=== PATIENT | male | born 1950 | race Caucasian/White ===

== ENCOUNTER 2020-12-11 05:13 | Observation (INO) ==
--- NOTE | 2020-12-03 12:50 | Anesthesiology Consultation ---
Date of Service December 03, 2020 Assessment & Plan (1) Encounter for pre-operative examination: Patient was originally scheduled for this TKA to be done 10/06/20, and was seen in PAT by Windy Ambrosio PA-C on 09/21/20. Case R/S twice due to COVID surge. COVID Status: As of 12/03 nurse assessment, patient denies travel to endemic area, known exposure/sick contacts, or symptoms of COVID19. Preoperative COVID19 testing to be updated prior to surgery (was negative on 10/27, surgery subsequently R/S). PCP Clearance 10/05/20: "considered to be medically stable for the upcoming surgery." Pre-op labs will be > 60 days old by a few days by DOS. CBC, BMP, coags all unremarkable on 09/21/20. Will leave to MDA discretion if testing to be updated AM DOS. Chart Review Chart Review: Acceptable Risk for Surgery and Patient NOT seen in Pre Admission Testing History Surgery Operation Date: 12/11/20 07:30 Proposed Procedures p Left Total Knee Arthroplasty - Ned Echeverria DO Height/Weight Height: 5 ft 7 in Weight: 105.596 kg Allergies Allergy/AdvReac Type Severity Reaction Status Date / Time No Known Allergies Allergy Verified 12/03/20 11:47 Medications Home Medications Medication Instructions Recorded Confirmed Last Taken aspirin [Aspir-81] 81 mg PO QAM 09/10/20 12/03/20 10/06/20 05:30 lisinopril 20 mg PO QAM 09/10/20 12/03/20 10/05/20 09:00 metformin 850 mg PO BID 09/10/20 12/03/20 10/05/20 18:00 multivitamin 1 tab PO QAM 09/10/20 12/03/20 Unknown pantoprazole 20 mg PO QAM 09/10/20 12/03/20 10/06/20 05:30 rosuvastatin 10 mg PO QPM 09/10/20 12/03/20 10/05/20 19:00 naproxen sodium [Aleve] 220 mg PO BID PRN 10/06/20 12/03/20 09/22/20 Past Medical History Medical History Cardiac murmur HX-F/U DR FABIÁN MENDOZA- NO SIGNIFICANT MURMUR NOTED ON PAT EXAM 09/21/20. NO MURMUR NOTED BY CARDIO ON 06/03/20 VISIT Diabetes ORAL MEDS- GLUCOSE HAS BEEN IMPROVING WITH DIETARY CHANGES Enlarged prostate GERD (gastroesophageal reflux disease) Well controlled and stable with meds Gout HX- NO RECENT ISSUES HTN (hypertension) Hypercholesteremia Sleep apnea MILD-UNABLE TO TOLERATE DEVICE- CURRENTLY DOING CONSERVATIVE MEASURES Past Surgical History Surgical History History of colonoscopy X 3 History of esophagogastroduodenoscopy (EGD) No pertinent past surgical history Social History Smoking Status: Never smoker Do You Dip or Chew Tobacco: No Hx Alcohol Use: Yes Alcohol type: hard liquor alcohol intake frequency: a few times a month Hx Substance Use: No substance use type: does not use Testing Laboratory Results 09/21/20 WBC: 7.43 H/H: 13.4/40.8 PLATELETS: 262 SODIUM: 137 POTASSIUM: 4.8 CHLORIDE: 103 CO2: 27 BUN: 21 CREATININE: 1.19 GLUCOSE: 102 PT: 11.4 PTT: 28.7 INR: 1.1 A1C: 7.7% TYPE AND SCREEN: A +, antibody negative Other Testing Electrocardiogram Date: 09/21/20 Findings: + NSR @ (85) Normal EKG. Chest X-Ray Date: 09/21/20 Findings: + NAD There is mild elevation of the right hemidiaphragm There is an indeterminant 1.8 cm calcification in the upper abdomen seen anterior to the spinal on the lateral projection. Consider abdominal radiographs for further assessment. (CXR sent to PCP for further review. Abdominal radiographs done and noted below.) Abdomen ultrasound 10/01/20 Fatty liver. Two hypoechoic areas 1 of which is likely a cyst and the other probably fatty sparing near the gallbladder fossa. There is no clinical concern regarding metastatic disease, a follow-up exam could be obtained in 6 months to document stability, as a precaution. Possible renal calculi bilaterally. Aortic calcification consistent with atherosclerosis. No evidence of aneurysm. Echocardiogram Date: 02/28/19 EF: 60% LV Function: normal RWMA: + none Thickened mitral and aortic valve
--- NOTE | 2020-12-10 13:24 | History & Physical Report ---
Date of Service December 10, 2020 Assessment & Plan (1) Osteoarthritis of left knee: We will proceed with a left total knee arthroplasty. Postoperatively he will be kept overnight in the hospital for postoperative medical management. He will be started on aspirin for DVT prophylaxis. He plans to go to physical therapy in [place] upon discharge. History of Present Illness Chief Complaint: Primary osteoarthritis of the left knee. Primary Care Provider: Robert Morrow MD Denny is a pleasant 70-year-old male who is been dealing with a 15-year history of increasing left knee pain. X-rays and clinical examination have been diagnostic for advancing arthritis mostly of the medial compartment of his left knee. After failing extensive conservative treatment, he has elected proceed with a left total knee arthroplasty.. Allergies Allergy/AdvReac Type Severity Reaction Status Date / Time No Known Allergies Allergy Verified 12/03/20 11:47 Home Medications Medication Instructions Recorded Confirmed Type aspirin [Aspir-81] 81 mg PO QAM 09/10/20 12/03/20 History lisinopril 20 mg PO QAM 09/10/20 12/03/20 History metformin 850 mg PO BID 09/10/20 12/03/20 History multivitamin 1 tab PO QAM 09/10/20 12/03/20 History pantoprazole 20 mg PO QAM 09/10/20 12/03/20 History rosuvastatin 10 mg PO QPM 09/10/20 12/03/20 History naproxen sodium [Aleve] 220 mg PO BID PRN 10/06/20 12/03/20 History Past Med/Surg History Medical History Cardiac murmur HX-F/U DR FABIÁN MENDOZA- NO SIGNIFICANT MURMUR NOTED ON PAT EXAM 09/21/20. NO MURMUR NOTED BY CARDIO ON 06/03/20 VISIT Diabetes ORAL MEDS- GLUCOSE HAS BEEN IMPROVING WITH DIETARY CHANGES Enlarged prostate GERD (gastroesophageal reflux disease) Well controlled and stable with meds Gout HX- NO RECENT ISSUES HTN (hypertension) Hypercholesteremia Sleep apnea MILD-UNABLE TO TOLERATE DEVICE- CURRENTLY DOING CONSERVATIVE MEASURES Surgical History History of colonoscopy X 3 History of esophagogastroduodenoscopy (EGD) No pertinent past surgical history Social History Smoking Status: Never smoker Second Hand Exposure: Yes (mom smoked); Hx Alcohol Use: Yes Alcohol type: hard liquor Hx Substance Use: No Preferred Language: Malian Communication Ability: Effective Surface Supply Breathing Apparatus Required: No Beliefs That Will Affect Care: None Current Living Situation: Spouse and Family Feels Safe at Home: Yes Assistive Devices: Glasses Review of Systems All systems reviewed & are unremarkable except as noted in HPI & below. Physical Exam On physical examination of the left knee, he has a trace effusion. He is a varus deformity. He has good motion of 0 to 120 degrees. Is no instability.. Constitutional WD/WN, vitals as above Eyes PERRL, conjunctivae normal, anicteric sclerae ENMT external ear and nose normal, oropharynx normal Neck trachea midline, no thyromegaly Respiratory normal respiratory effort Cardiovascular RRR, no murmur, no edema Gastrointestinal (Abdomen) normal bowel sounds, soft, nontender, no hepatosplenomegaly Psychiatric A+Ox3, euthymic affect Results & Data Results & Data Laboratory Results . Diagnostic Findings X-rays of the left knee show advanced osteoarthritis mostly involving the medial compartment. There is joint space narrowing, osteophyte formation, and [id number] articulation.. PG Care Time/CCT Total # of Minutes Spent Total Time Spent with Patient: Total time spent is greater than 50% in coordination of care (as documented) at patient's floor/unit and/or counseling patient: Coding Level of Care Code None Diagnoses Osteoarthritis of left knee M17.12
[2020-12-11] MEDS ORDERED: ceFAZolin 2000MG 2,000 MG/15 ML SYR IV SCH (06:00)
[2020-12-11] MEDS ORDERED: LR 500ML BOLUS, THEN 15ML/HR IV SCH (06:00)
[2020-12-11] MEDS ORDERED: TRANEXAMIC ACID 1,000 MG **IV Pre-op IV SCH (06:00)
[2020-12-11] MEDS ORDERED: GABAPENTIN 300 MG CAP PO SCH (06:00)
[2020-12-11] MEDS ORDERED: dexAMETHasone 4 MG TAB PO SCH (06:00)
[2020-12-11] MEDS ORDERED: TRANEXAMIC ACID 1,000 MG **IV Intra-op IV SCH (06:00)
[2020-12-11] MEDS ORDERED: ACETAMINOPHEN 500 MG TAB PO SCH (06:00)
[2020-12-11] MEDS ORDERED: FAMOTIDINE 20 MG TAB PO SCH (06:00)
[2020-12-11] MEDS ORDERED: ROPIVACAINE 0.5% HCL/PF 150 MG, BUPIVACAINE 0.75% MPF 20 ML, EPINEPHrine 30MG/30ML (OR ... INSTIL SCH (06:00)
[2020-12-11] MEDS ORDERED: LR 60ML/HR IV SCH (06:00)
[2020-12-11] MEDS ORDERED: BUPIVACAINE 0.5 % 5 MG/1 ML PF 10ML VIAL ONE (06:12)
[2020-12-11] MEDS ORDERED: BUPIVACAINE 0.25% 30 ML VIAL ONE (06:13)
[2020-12-11] MEDS ORDERED: DEXAMETHASONE SOD INJ 4 MG/ML VIAL ONE (06:13)
[2020-12-11] MEDS ORDERED: EPINEPHrine INJ 1 MG/ML AMP ONE (06:13)
--- NOTE | 2020-12-11 06:59 | History & Physical Bridge Note ---
Date of Service December 11, 2020 History & Physical Bridge Note I have examined the patient, reviewed the History & Physical and in the interval since the performance of the History & Physical I have noted the following changes of clinical significance: no changes noted
[2020-12-11] MEDS ORDERED: PROPOFOL IV EMULSION 10 MG/ML 20 ML VIAL IV ONE (07:01)
[2020-12-11] MEDS ORDERED: LIDOCAINE HCL 2% 2 ML VIAL/AMP(20MG/ML) INFIL ONE (07:01)
[2020-12-11] MEDS ORDERED: MIDAZOLAM HCL 1 MG/ML 2ML VIAL ONE (07:02)
[2020-12-11] MEDS ORDERED: fentaNYL citrate 100 MCG/2 ML VIAL ONE (07:02)
[2020-12-11] MEDS ORDERED: ORTHO JOINT ANESTHETIC ONE (07:07)
[2020-12-11] MEDS ORDERED: ePHEDrine sulfate 50 MG/ML AMP IV PRN (07:09)
[2020-12-11] MEDS ORDERED: PROMETHAZINE HCL 6.25 MG in SODIUM CHLORIDE 0.9% 50 ML IV PRN (07:09)
[2020-12-11] MEDS ORDERED: ONDANSETRON INJ 2 MG/ML 2 ML VIAL IV PRN ×2 (07:09→10:44)
[2020-12-11] MEDS ORDERED: ATROPINE SULFATE 0.1 MG/ML 10ML SYR IV PRN (07:09)
[2020-12-11] MEDS ORDERED: fentaNYL citrate 100 MCG/2 ML VIAL IV PRN (07:09)
--- NOTE | 2020-12-11 09:12 | Operative Report ---
PG Post Operative Report Pre & Post Diagnosis Operation Date: 12/11/20 07:30 Pre-Op Diagnosis: degenerative joint disease Left Knee Post-Op Diagnosis: degenerative joint disease Left Knee I identified the patient and participated in the time-out.: Yes Procedure Operation Date: 12/11/20 07:30 Actual Procedures p Left Total Knee Arthroplasty(Left) - Ned Echeverria DO Surgeon Ned Echeverria DO Sewing Room Supervisor Ned Pina PAC Estimated Blood Loss 10 Findings Consistent with Post-Op Diagnosis Specimens Left femoral and tibial bone Complications none Disposition Disposition: Recovery Room Indications Denny is a pleasant 70-year-old male who is been dealing with a 15-year history of increasing left knee pain. X-rays and clinical examination have been diagnostic for advanced osteoarthritis of the left knee. After failing conservative treatment, he has elected to proceed with a left total knee arthroplasty. Description of Procedure Implants used: I used a Lyndsey Persona total knee arthroplasty system with a size 10 standard femur, G tibia, 32 patella, and a size 12 medial congruent polyethylene bearing. All components were cemented in place with Palacos G cement. Denny arrived [facility] for the above procedure. He was seen in the preoperative holding area and the operative extremity was identified and signed. He was given a preoperative antibiotic, TXA, a spinal anesthetic and an adductor nerve block. He was taken back to the operating room and laid on the table in supine position. He was given basic sedation. The operative knee was then prepped and draped in sterile fashion. A timeout was done, and the patient and the operative extremity was properly identified. A midline incision was made directly over the patella. Dissection was taken d own to the extensor mechanism. A subvastus arthrotomy was used. The medial retinaculum was released and the fat pad was mostly excised. The knee was flexed and the ACL, PCL, and meniscus were removed. A drill was sent down the center of the femoral canal followed by an intramedullary lili. Off that lili a distal femoral cutting block was placed. 9 mm was resected off the distal femur at 5 of valgus. A posterior referencing AP sizing guide was then placed on the distal femur. The femur measured to be a size 10 standard. 2 drill holes were placed in 3 of external rotation. A 4-in-1 cutting block was then impacted into place. Anterior, posterior, and chamfer cuts were then made. The proximal tibia was then exposed. An external tibial alignment guide was placed. A tibial cut guide was then anchored in place and the proximal tibia was then resected. The posterior aspect of the knee was then opened up and any additional meniscus fragments and osteophytes were removed. The tibia measured to be a size G. The tibial plate was then placed in the appropriate rotation and the tibia was drilled and punched. Trial components were then placed. I used a size 12 medial congruent polyethylene insert. The knee was brought through a full range of motion and felt to be stable. The peg holes for the femoral component were then drilled. The patella was then everted and 9 mm was resected off the posterior aspect of the patella. The patella measured to be a size 32. 3 peg holes were then drilled. A trial patella was placed. The knee was once again brought through a full range of motion and felt to be stable. Trial components were then removed. The surrounding soft tissues were injected with 100 cc of an orthopedic pain control cocktail. All components were then c emented into place with Palacos G cement. The final polyethylene insert was then snapped into place. Once cement was dry the tourniquet was deflated. Hemostasis was obtained. A dilute betadyne lavage was then done for 3 minutes. The joint was then irrigated with normal saline solution. The subvastus arthrotomy was then closed with #1 Vicryl suture. The skin was closed with 2-0 Vicryl, 3-0V lock suture, and sara. A Silverlon and a soft compressive dressing were placed. He was then transferred to a hospital bed and taken to the postanesthesia care unit in stable condition. He tolerated the procedure well. Ned Pina PA-C, was present for the entire procedure. He was critical for patient positioning, prepping, draping, retraction exposure, wound closure and application of sterile dressing. I attest to the content of the Intraoperative Record and any orders documented therein. Any exceptions are noted below.
[2020-12-11] MEDS ORDERED: PHENYLEPHRINE 100MCG/ML 5ML SYR ONE (09:27)
--- NOTE | 2020-12-11 09:54 | XRay Report ---
LEFT KNEE 2 VIEWS History: Left total knee arthroplasty. Degenerative arthritis. Postop. FINDINGS: The patient is status post a left total knee arthroplasty. The hardware is intact. No fract ure or dislocation. Skin sara are in place. IMPRESSION: Left total knee arthroplasty. No evidence for hardware complication. ACT 112: Negative or not required by law. Electronically signed by: Simone Chung M.D. 12/11/2020 9:53 AM
--- NOTE | 2020-12-11 10:09 | Anesthesiology Progress Note ---
Date of Service December 11, 2020 Anesthesia Post Procedure Vital Signs Vital Signs: Temp Pulse Pulse Resp BP Pulse Ox 12/11/20 10:05 36.7 C 58 L 13 105/58 L 95 12/11/20 09:55 36.7 C 66 19 107/63 95 12/11/20 09:45 36.7 C 74 14 109/66 96 12/11/20 09:35 74 14 105/60 96 12/11/20 09:25 75 16 103/63 100 12/11/20 09:17 36.4 C L 76 16 104/55 L 99 12/11/20 05:44 36.7 C 93 H 20 150/93 H 97 Transfer of Care Handoff Completed per policy Notes Mental Status: alert / awake / arousable Patient Amnestic to Procedure: Yes Nausea / Vomiting: adequately controlled Pain: adequately controlled Airway Patency, RR, SpO2: stable & adequate BP & HR: stable & adequate Hydration State: stable & adequate Neuraxial Anesthesia: was administered and sensory block is resolving Anesthetic Complications: no major complications apparent
[2020-12-11] MEDS: SODIUM CHLORIDE 0.9% 1000ML 1,000 ML IV SCH ×2 (10:35→20:58)
[2020-12-11] MEDS ORDERED: MAGNESIUM HYDROXIDE SUSP 30 ML UDC PO PRN (10:44)
[2020-12-11] MEDS ORDERED: NALOXONE HCL 0.4 MG/1 ML VIAL/CARP IV PRN (10:44)
[2020-12-11] MEDS ORDERED: HYDROmorphone INJ 0.5 MG/0.5 ML SYR IV PRN (10:44)
[2020-12-11] MEDS ORDERED: bisacodyL 10 MG SUPP PR PRN (10:44)
[2020-12-11] MEDS ORDERED: oxyCODONE HCL IR 5 MG TAB (IMMEDIATE RELEASE) PO PRN (10:44)
[2020-12-11] MEDS ORDERED: METOCLOPRAMIDE HCL INJ 5 MG/ML 2 ML VIAL IV PRN (10:44)
[2020-12-11] MEDS ORDERED: PHARMACY GLYCEMIC MGMT CONSULT PRN (10:53)
[2020-12-11] MEDS ORDERED: CARBOHYDRATES FOR HYPOGLYCEMIA PO PRN (11:00)
[2020-12-11] MEDS ORDERED: GLUCAGON FOR INJ 1 MG VIAL IM PRN (11:00)
[2020-12-11] MEDS ORDERED: GLUCOSE 10 TABS/TUBE PO PRN (11:00)
[2020-12-11] MEDS ORDERED: GLUCOSE 40% GEL 15 GM TUBE PO PRN (11:00)
[2020-12-11] MEDS ORDERED: DEXTROSE 50% 50 ML SYRINGE IV PRN (11:00)
--- NOTE | 2020-12-11 11:07 | Pharmacy Report ---
Pharmacy Glycemic Short Note 2 - Date of Service December 11, 2020 - Glycemic Short BSG Results (Last 24 hours): 12/11/20 12/11/20 05:35 09:23 POC Glucose 122 H 150 H OUTPATIENT ANTIDIABETIC REGIMEN: * metformin 850 mg bid * A1c 7.7% 09/2020 ASSESSMENT: * Patient is POD 0, s/p TKA. Type 2 diabetic managed only on metformin at home. Pharmacy consulted for glycemic management postop. * Patient did receive dexamethasone 8 po and also 4 mg iv, therefore I anticipate steroid induced hyperglycemia * Plan to order one time dose of NPH ~0.2 unit/kg to help cover steroid effects and will start SSI as well PLAN FOR INPATIENT GLYCEMIC CONTROL: * Hold outpatient oral diabetes medications * Basal insulin * NPH 20 units x 1 * Bolus insulin * NovoLog per scale ACHS or Q6hrs while NPO * Goal Range: Low 110 mg/dL - High 140 mg/dL * Correction Factor: 20 mg/dL/unit * Nutritional / Prandial insulin per carb ratio of 1 unit per 6 grams CHO consumed PLAN FOR DISCHARGE: * A1c of 7.7% - goal closer to 7% * Reasonable to continue home metformin on discharge as long as no contraindications present. * Would encourage healthy lifestyle (diet, exercise, etc) and continued SMBG at home
[2020-12-11] MEDS: KETOROLAC TROMETHAMINE 15 MG/ML VIAL IV SCH ×3 (11:58→23:47)
[2020-12-11] MEDS ORDERED: NovoLIN-N (NPH) PER UNIT CHARGE SQ ONE (12:30)
[2020-12-11] MEDS: INSULIN ASPART 100 UNITS/ML 3 ML PEN SC SCH ×3 (12:52→21:08)
[2020-12-11] MEDS: ACETAMINOPHEN 500 MG TAB PO SCH ×2 (12:55→21:03)
[2020-12-11] MEDS: ceFAZolin 2000MG 2,000 MG/15 ML SYR IV SCH ×2 (15:49→23:45)
[2020-12-11] MEDS ORDERED: SENNA 8.6 MG TAB PO SCH (21:00)
[2020-12-11] MEDS ORDERED: ROSUVASTATIN CALCIUM 10 MG TAB PO SCH (21:00)
[2020-12-11] MEDS: DOCUSATE SODIUM 100 MG CAP PO SCH (21:03)
[2020-12-11] MEDS: ASPIRIN 81 MG ECTAB PO SCH (21:03)
[2020-12-12] MEDS ORDERED: INSULIN ASPART 100 UNITS/ML 3 ML PEN SC SCH
[2020-12-12 06:08] LABS: Hemoglobin 11.1 g/dL (14.0-18.0); Mean Corpuscular Hemoglobin 28.4 pg (25-34); Mean Corpuscular Hgb Conc 33.6 g/dL (32-36); Mean Corpuscular Volume 84.4 fL (80-100); Mean Platelet Volume 10.6 fL (7.4-10.4); Platelet Count 226 K/uL (130-400); RDW Coefficient of Variation 13.3 % (11.5-14.5); RDW Standard Deviation 40.4 fL (36.4-46.3); Red Blood Count 3.91 M/uL (4.7-6.1); White Blood Count 17.13 K/uL (4.8-10.8)
[2020-12-12] MEDS: KETOROLAC TROMETHAMINE 15 MG/ML VIAL IV SCH (06:20)
[2020-12-12] MEDS: ACETAMINOPHEN 500 MG TAB PO SCH (06:21)
[2020-12-12 06:34] LABS: Calcium 8.3 mg/dl (8.5-10.1); Creatinine Clr Calc Pharmacy 61.6 ml/min; Est GFR (African American) 64.5; Est GFR (Non-African American) 55.7
[2020-12-12] MEDS: SODIUM CHLORIDE 0.9% 1000ML 1,000 ML IV SCH (07:05)
--- NOTE | 2020-12-12 08:02 | Orthopedic Progress Note ---
Date of Service December 12, 2020 Assessment & Plan (1) Status post left knee replacement: Overall is doing very well. Is not having much pain in the left knee. He is on aspirin for DVT prophylaxis. He will be seen by physical therapy today for ambulation and range of motion exercises. He can be discharged home later today. He will follow-up with orthopedics in 2 weeks. Geo Marsh was seen and examined at bedside this morning. Overall is doing very well. Is not having any pain in the left knee. He has been up and ambulating with a walker. He has no complaints.. Review of Systems All systems reviewed & are unremarkable except as noted in HPI & below. Physical Exam On physical examination of the left knee, the dressing is clean and dry. His leg is out in full extension. He has active dorsiflexion and plantarflexion of the left ankle.. Results & Data Results & Data Laboratory Results . Diagnostic Findings Postoperative x-rays of the left knee show the prosthesis to be in anatomic alignment without any evidence of fracture, dislocation, or loosening.. PG Care Time/CCT Total # of Minutes Spent Total Time Spent with Patient: Total time spent is greater than 50% in coordination of care (as documented) at patient's floor/unit and/or counseling patient: Coding Level of Care Code 83821 Post Operative Follow-Up Diagnoses Status post left knee replacement Z96.652
--- NOTE | 2020-12-12 08:03 | Discharge Summary ---
Date of Service December 12, 2020 Admission HPI (Per Admitting) Denny is a pleasant 70-year-old male who is been dealing with a 15-year history of increasing left knee pain. X-rays and clinical examination have been diagnostic for advancing arthritis mostly of the medial compartment of his left knee. After failing extensive conservative treatment, he has elected proceed with a left total knee arthroplasty.. Admission Exam (Per Admitting) On physical examination of the left knee, he has a trace effusion. He is a varus deformity. He has good motion of 0 to 120 degrees. Is no instability.. Principal Diagnosis Same as "Discharge Diagnosis" noted below under Discharge Instructions. Discharge Exam On physical examination of the left knee, the dressing is clean and dry. His leg is out in full extension. He has active dorsiflexion and plantarflexion of the left ankle.. Discharge Data Consultations 12/11/20 10:44 Consult Case Management - Discharge Planning Routine Procedures Performed Operation Date: 12/11/20 07:30 Actual Procedures p Left Total Knee Arthroplasty(Left) - Ned Echeverria DO Ordered Studies 12/11/20 05:00 US - OR guided needle placemen Routine Hospital Course (1) Status post left knee replacement: On December 12, 2020 Denny arrived at [facility] and underwent a left knee replaced without complication. He had a spinal anesthetic. Postoperatively he was started on aspirin for DVT prophylaxis and transferred to the general orthopedic floors. His hospital course was uneventful. On postop day #1 his H&H was stable and his pain was well controlled. He was able to participate well with physical therapy doing ambulation and range of motion exercises. He was then discharged to home. He will follow-up with orthopedics in 2 weeks. PG Care Time/CCT Total # of Minutes Spent Total Time Spent with Patient: Total time spent is greater than 50% in coordination of care (as documented) at patient's floor/unit and/or counseling patient: Discharge Plan Discharge Items Patient Disposition: Home - Home Health Services Reason For Visit: DJD Left Knee Discharge Diagnosis: Left knee replacement Activity: As commented below Non-emergency contact: Surgeon Call non-emergency contact if: your wound has increased redness and your wound has increased drainage Follow-up/Referrals: Robert Morrow MD [Primary Care Provider] - Diet: Regular Addtl Attending Provider Instructions: Activity and Therapy Recommendations: * If you are using [facility] then therapy will be provided at your home until they feel you have accomplished all of your goals. * If you are using [facility] then Physical Therapy will be provided until they feel you are ready to start Outpatient Physical Therapy. * If you are not using home therapy then Outpatient Physical Therapy should start about 3-5 days from your day of surgery. Therapy will last about 6-10 weeks * It is important not to put a pillow under your knee when you are relaxing or sleeping. It is just as important to make sure you are getting your knee perfectly straight as it is to regain your knee bend. * You were shown a series of exercises in the hospital. Do these exercises three times each day including the exercises you were shown in physical therapy. * Get up and walk several times each day. For the first four weeks, try not to stand or walk for more than one hour at a time. If you do stand or walk for more than one hour, you will not hurt anything, but your leg will likely swell. * As you feel comfortable, you may change from the walker or crutches to a cane and then to independent walking. Medications: * Narcotic You will likely be sent home from the hospital with a prescription for the narcotic pain medication that worked best throughout your stay. * Aspirin Most patients will be required to take Aspirin 81mg twice a day for 6 weeks after surgery. This is obtained [id number] and a prescription is not necessary. * Other medications may be prescribed for specific circumstances. If you have any questions, please call the office at . * Resume previous home medications unless otherwise instructed TEDs/Elastic Stockings: The white elastic stockings help limit swelling and prevent blood clots from forming in your legs.~ The more you wear them, the more they work. Wear them for six weeks. Dressing Care: Leave the Silverlon dressing in place for 7 days. After 7 days you may remove the dressing. If the incision is not draining then you may leave the sara open to air. If there is a little bit of drainage or if the sara are getting stuck on your clothing then cover the incision with a dry dressing. The sara will be removed at your 2 week follow-up appointment. Showering: You may shower with the Silverlon dressing in place. Do not let the shower spray hit the dressing directly. Pat the Silverlon dressing dry. If the dressing becomes wet underneath, then simply remove the dressing. Keep the incision dry until you are 7 days out from the day of surgery. After 7 days you may remove the Silverlon dressing and shower with the sara exposed. Let soapy water run over the sara and pat them dry. Do not scrub or soak the incision. Things To Watch For: * Drainage from the incision site that occurs more than one week after your surgery. * Increased redness at the incision site. * Fever above 102 degrees Fahrenheit. * Unusual chest pain or shortness of breath. * Call [facility] at with any of the above problems Follow-Up Visit: Follow-up with Dr. Echeverria's PA (Ned Pina) 2-3 weeks after your day of surgery. He will remove your sara and answer any questions. If you have any additional questions or concerns, Dr Echeverria is usually in the office at the same time and will be available An appointment was probably scheduled when you signed-up for surgery in the office. If you have any questions call Office Instructions: More detailed instructions as well as Frequently Asked Questions were provided in a folder by our office when you signed-up for surgery. Please review these instructions when you get home. If you have any further questions or concerns, please feel free to call the office at [phone] Pending Studies at Discharge: No Stand-Alone Forms: [facility], Smoking Cessation Medications and DC Order Prescriptions: New oxycodone 5 mg Tablet 5 mg PO Q4H PRN (Reason: pain) Qty: 40 RF: 0 Continued (DME) Wheeled Walker Misc See Rx Instructions .MEDSUPPLY Qty: 1 RF: 0 lisinopril 20 mg Tablet 20 mg PO QAM RF: 0 metformin 850 mg Tablet 850 mg PO BID RF: 0 pantoprazole [Protonix] 20 mg Tablet,Delayed Release (Dr/Ec) 20 mg PO QAM RF: 0 rosuvastatin 10 mg Tablet 10 mg PO QPM RF: 0 multivitamin Tablet 1 tab PO QAM RF: 0 naproxen sodium [Aleve] 220 mg Tablet 220 mg PO BID PRN (Reason: Pain) RF: 0 Changed aspirin 81 mg Tablet,Delayed Release (Dr/Ec) 81 mg PO BID 42 Days Qty: 0 RF: 0 Discharge Orders: Discharge Order (Routine); Ordered 12/12/20 Ordered By: Ned Rhoades/Other Patient Handouts: High Blood Sugar (Hyperglycemia), Hypoglycemia (Low Blood Sugar), Managing Type 2 Diabetes, 5 Steps for Eating Healthier, Managing Diabetes: The A1C Test, Understanding Type 2 Diabetes Admission Data Admit Date/Time: 12/11/20 09:18 Attending Provider: Ned Echeverria Admit Provider: Ned Echeverria Primary Care Provider: Robert Morrow
[2020-12-12] MEDS: DOCUSATE SODIUM 100 MG CAP PO SCH (08:22)
[2020-12-12] MEDS: ASPIRIN 81 MG ECTAB PO SCH (08:23)
[2020-12-12] MEDS: INSULIN ASPART 100 UNITS/ML 3 ML PEN SC SCH (08:25)
[2020-12-12] MEDS ORDERED: lisinopril 20 MG TAB PO SCH (09:00)
[2020-12-12] MEDS ORDERED: MULTIVITAMIN TAB PO SCH ×2 (09:00)
[2020-12-12] MEDS ORDERED: PANTOprazole 40 MG TAB PO SCH (09:00)
== END 2020-12-12 10:33 | disposition home health service (06) ==
LOC: 3W 05:13 → ASU 05:13